=== PATIENT | male | born 1950 | race Caucasian/White ===

== ENCOUNTER 2017-04-16 05:08 | Day surgery (SDC) | payer OTHER ==
[~2017-04-16] VITALS: Ht 182.9 cm; Wt 88.0 kg
--- NOTE | ~2017-04-16 | O ---
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 PROCEDURE: Left lower lid ectropion repair with transconjunctival left lower lid and cheek lift and permanent lateral tarsorrhaphy. SURGEON: Richard Steel M.D. DAIRY TECHNOLOGIST: None. ANESTHESIA: General. COMPLICATIONS: None. 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 He presents today for a combined left lower lid and cheek procedure in order to attempt to improve his ocular surface milieu. Informed consent was obtained to include but not limited to the potential risk for loss of vision, bleeding, infection, failure to improve the problem and the potential need for further surgery or treatment. DESCRIPTION OF PROCEDURE: The patient was taken to the operating room where 2% Xylocaine with epinephrine mixed with equal parts of 0.75% Marcaine with Wydase was administered to the left lower lid, the left upper lid, the left lateral canthus, the left infratemporal fossa and the left cheek. The patient was subsequently prepped and draped in the usual sterile fashion. The left lateral canthus was then clamped with a Dillon clamp. A sharp canthotomy and cantholysis were then performed. Hemostasis was then re-achieved with monopolar cautery. A tarsal strip was then prepared laterally removing the [facility] [address] [place] [address] OPERATIVE REPORT Name: NORAHJORDANJEOVANY SHIELDS Room #: [facility]P [facility] M.R.#: [id number] Admission: 04/16/17 Attend Phys: Richard Steel MD Discharge: 04/16/17 Date of : 48 Report #: [id number] lash-bearing portion of the redundant lid margin and the redundant tarsal plate. The lid was then distracted into the anticipated position of the new lateral canthus. A branden was made for identification of the location of the tarsorrhaphy. A transconjunctival incision was then made below the tarsal plate and carried out into the premalar tissues. The lower lid and cheek tissues were then re-elevated and suspended with interrupted 5-0 Prolene sutures. The lower lid and cheek lift having been completed, the lower lid ectropion repair was then accomplished as the tarsal strip was resecured to the internal portion of the lateral orbital tubercle with interrupted 5-0 Prolene sutures. That incision was then closed with interrupted 6-0 plain gut sutures. The lid margin was then denuded over the lateral one-third of the upper and the lower lid. Pretarsal incisions were then made in an supra and infraciliary plane. Utilizing a 6-0 Vicryl suture, a [id number] mattress extensive tarsorrhaphy was then accomplished in a serpentine fashion. The knots were buried in the pretarsal incisions. This closed the lateral one-third of the palpebral aperture. The supra and infraciliary incisions were closed with 6-0 plain gut sutures. The wounds were then cleaned and dressed with erythromycin ointment. The patient was subsequently transported to the recovery area having tolerated the procedures well with no anesthetic or operative complications being noted. <ELECTRONICALLY SIGNED> By: Richard Steel MD 04/23/17 0621 [id number] Richard Steel MD /nt
[~2017-04-16 05:08] MED LIST: AMLODIPINE BESY10 MG PO; ASPIRIN81 M2 PO; CATAPRES-TTS 10.1 MG TD; COLACE100 MG PO; COREG25 MG PO; DOCUSATE SODIU100 MG PO; HYDROCHLOROTHIA25 M2 PO; HYDROCODONE-AP1 EAC6 PO; LANTUS SC; LIPITOR; LIPITOR 20 MG T20 M1 PO; MINOXIDIL2.5 MG PO; MYFORTIC180 MG PO; NOVOLOG100 UNIT/1 SQ; POTASSIUM CHLO10 MEQ PO; PRILOSEC 20 MG20 MG PO; PROGRAF0.5 MG PO; REGLAN 5 MG TAB5 M1 PO; TYLENOL325 MG PO; ZOLOFT50 MG PO
[2017-04-16 14:04] VITALS: BP 119/70
== END 2017-04-16 16:10 | disposition home or self-care (01) ==
LOC: OR 05:08 → TBA 05:09 → OR 09:04
DX: H02.105 Unspecified ectropion of left lower eyelid (principal); H02.23 Paralytic lagophthalmos; H18.9 Unspecified disorder of cornea; F32.9 Major depressive disorder, single episode, unspecified; F41.9 Anxiety disorder, unspecified; I10 Essential (primary) hypertension; E78.5 Hyperlipidemia, unspecified; K21.9 Gastro-esophageal reflux disease without esophagitis; E11.69 Type 2 diabetes mellitus with other specified complication; Z79.899 Other long term (current) drug therapy
CPT/HCPCS: 50010; 50101; 50386; 50398; 51636; 56527; 56528; 56531; 62110; 62850; 70005